=== PATIENT | female | born 1970 | race Caucasian/White ===

== ENCOUNTER 2019-04-18 17:56 | Emergency (ER) | payer BC ==
[~2019-04-18] VITALS: Ht 165.1 cm; Wt 103.4 kg
[2019-04-18] MEDS ORDERED: WELLBUTRIN 75 M75 M1 PO (18:09)
[2019-04-18] MEDS ORDERED: PROTONIX 20 MG20 M1 PO (18:09)
[2019-04-18] MEDS ORDERED: ACYCLOVIR 400400 MG PO (18:10)
[2019-04-18 19:33] VITALS: BP 127/84
== END 2019-04-18 19:33 | disposition home or self-care (01) ==
LOC: M.ERS 17:56
DX: M79.605 Pain in left leg (principal); Z85.048 Personal history of other malignant neoplasm of rectum, rectosigmoid junction, and anus

== ENCOUNTER 2020-04-27 16:19 | Inpatient (IN) | payer BC ==
[~2020-04-27] VITALS: Ht 162.6 cm; Wt 91.6 kg
--- NOTE | ~2020-04-27 | OP ---
[address] [address] OPERATIVE REPORT Name: FRAN ALMEIDA Room: [address] IN M.R.#: [id number] Admission: 04/27/20 Attend Phys: Betina Hoover Discharge: 04/30/20 Date of : 68 Report #: [id number] THIS REPORT FOR: //name// cc: Parvin Phelps Maggie M. DO THIS REPORT FOR: //name// CC: Betina Howell DATE OF SERVICE: 04/29/2020 PREOPERATIVE DIAGNOSES: Acute cholecystitis, cholelithiasis. POSTOPERATIVE DIAGNOSES: Acute cholecystitis, cholelithiasis. SURGEON: Neftali Figueroa DO CO-SURGEON: Lowell Magallanes DO, PGY5 BUSINESS PARTNER: Nick Montalvo DO, PGY-1. OPERATION PERFORMED: Laparoscopic cholecystectomy. ANESTHESIA: General and bilateral transversus abdominis plain block by Anesthesia. ESTIMATED BLOOD LOSS: 20 mL. SPECIMEN: Gallbladder. COMPLICATIONS: None. INDICATIONS: The patient is a 49-year-old female who presented to the Emergency Department with complaints of abdominal pain. She was found on imaging to have cholelithiasis and secondary signs of cholecystitis. She was informed of the risks and benefits of laparoscopic cholecystectomy with risks including but not limited to bleeding, infection, common bile duct injury, bowel injury, hernia formation, need for reoperation, chronic diarrhea. She understood these risks and decided to proceed with surgery. DESCRIPTION OF PROCEDURE: After informed consent was obtained, the patient was brought to the operating room and placed in supine position. SCDs were on and running. Preoperative Zosyn had been given on the floor. ICG was given in preop. General anesthesia was administered with an ET tube. Bilateral transversus abdominis plane blocks were placed. The [place] [address] OPERATIVE REPORT Name: FRAN ALMEIDA Room: [address] IN [facility].#: [id number] Admission: 04/27/20 Attend Phys: Betina Hoover Discharge: 04/30/20 Date of : 68 Report #: [id number] draped in the usual sterile fashion. Surgical pause was held to confirm proper patient and procedure. A 2 cm incision was made superior to the umbilicus with an 11 blade. Dissection was carried down to the fascia using cautery. Fascia was incised using cautery and elevated with 2 Javi clamps. Peritoneum was bluntly entered. Bilateral stay sutures were placed at the superior and inferior aspect of the incision. The Greta trocar was introduced. Abdomen was insufflated. The patient was positioned up, right side up. Additional ports 5 mm in size were placed in the epigastrium and right upper quadrant x 2, all under direct visualization. The gallbladder was tense. 30 mL of bilious fluid were aspirated to allow better retraction. The peritoneum overlying the hepatocystic triangle was bluntly dissected free from the omental adhesions. This area was then incised using cautery. The plane was developed laterally and then medially. A suction quiller runner was used to bluntly dissect the hepatocystic triangle until the cystic duct was visualized. [place] dissector was then used to circumferentially dissect the cystic duct and the cystic artery. Critical view of safety was obtained with 2 and only two structures entering the gallbladder. A Weck Hem-o-jorge clips were then doubly placed on the cystic duct and singly placed on the cystic artery. Laparoscopic scissors were used to divide the cystic duct and cystic artery. The gallbladder was then elevated and dissected free from the liver bed. There was a small branch of the cystic artery on the posterior aspect that was encountered. This was circumferentially dissected and doubly clipped and cauterized. The gallbladder was then completely excised from the liver bed using cautery, placed within an EndoCatch bag and placed aside. The liver bed was inspected. Cautery was used for hemostasis. The right upper quadrant was thoroughly irrigated and suctioned. Clips were inspected and hemostatic. There was no active bile leak. NV fluorescent technology was used throughout the case to identify structures and confirmed before clipping and cutting. The abdomen was desufflated. All ports were removed under direct visualization. Previous stay sutures were elevated. Two additional of [id number] using 0 Vicryl were used to close the fascia after the specimen and Greta trocar were removed. Skin was closed using 4-0 Monocryl. The umbilical incision was closed using a 3-0 Vicryl, 4-0 Monocryl. Wounds were cleansed and dressed with Dermabond. The patient was emerged from anesthesia and transferred to the PACU in stable condition. All counts were correct. By: [id number] 1342Cchiquita Magallanes DO /nt
[~2020-04-27 16:19] MED LIST: ACYCLOVIR 400400 MG PO; PROTONIX 20 MG20 M1 PO; WELLBUTRIN 75 M75 M1 PO
[2020-04-27 16:26] VITALS: BP 159/109
[2020-04-27 17:01] LABS: ABSOLUTE EOSINOPHILS 0.1 thou/uL (0.0-0.7); ABSOLUTE LYMPHOCYTES 2.1 thou/uL (0.8-5.3); ABSOLUTE MONOCYTES 0.7 thou/uL (0.0-1.2); BASOPHILS 0.3 %; EOSINOPHILS 0.9 %; HEMATOCRIT 45.9 % (37.0-47.0); HEMOGLOBIN 15.5 gm/dL (12.0-15.0); LYMPHOCYTES 17.3 %; MCH 28.9 pg (26.0-34.0); MCHC 33.7 g/dL (28.0-37.0); MCV 85.7 fL (80.0-100.0); MONOCYTES 5.7 %; MPV 6.8 fl. (7.2-11.1); NUCLEATED RBCS 0 /100WBC; PLATELET COUNT* 319 thou/uL (150-400); POLYS 75.8 %; RBC 5.35 mil/uL (4.20-5.00); RDW-CV 13.4 % (10.5-14.5)
[2020-04-27 17:12] LABS: CALCIUM 9.3 mg/dL (8.5-10.1); POTASSIUM 3.8 mmol/L (3.5-5.1)
[2020-04-27 17:17] LABS: ALBUMIN 4.7 g/dL (3.4-5.0); TOTAL BILIRUBIN 0.3 mg/dL (<0.1-1.0); TOTAL PROTEIN 8.5 g/dL (6.4-8.2)
[2020-04-27 18:36] LABS: URINE BILIRUBIN NEGATIVE (Negative); URINE BLOOD NEGATIVE (Negative); URINE CLARITY CLEAR; URINE COLOR YELLOW; URINE GLUCOSE-RANDOM NEGATIVE (Negative); URINE KETONES NEGATIVE (Negative); URINE LEUKOCYTES-REFLEX NEGATIVE (Negative); URINE NITRITE-REFLEX NEGATIVE (Negative); URINE PROTEIN NEGATIVE (Negative); URINE UROBILINOGEN 0.2 E.U./dl (0.2-1.0)
[2020-04-27 21:15] VITALS: BP 132/75
[2020-04-27 21:35] VITALS: BP 116/65
[2020-04-27 22:00] VITALS: BP 116/65
[2020-04-28 08:56] VITALS: BP 93/44
--- NOTE | 2020-04-28 09:49 | EKG ---
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
[2020-04-28 16:00] VITALS: BP 135/70
[2020-04-28 21:52] VITALS: BP 124/73
[2020-04-29 05:05] LABS: HEMATOCRIT 37.5 % (37.0-47.0); MCH 29.3 pg (26.0-34.0); MCHC 34.7 g/dL (28.0-37.0); MCV 84.5 fL (80.0-100.0); MPV 6.5 fl. (7.2-11.1); RBC 4.44 mil/uL (4.20-5.00); RDW-CV 13.6 % (10.5-14.5); WBC 6.9 thou/uL (4.0-11.0)
[2020-04-29 05:38] LABS: ALBUMIN 3.1 g/dL (3.4-5.0); CALCIUM 7.9 mg/dL (8.5-10.1); CREATININE 0.7 mg/dL (0.6-1.3); POTASSIUM 3.3 mmol/L (3.5-5.1); TOTAL BILIRUBIN 0.4 mg/dL (<0.1-1.0); TOTAL PROTEIN 5.7 g/dL (6.4-8.2)
[2020-04-29 08:14] VITALS: BP 121/73
[2020-04-29 23:37] VITALS: BP 129/77
[2020-04-30 03:59] LABS: HEMATOCRIT 41.4 % (37.0-47.0); HEMOGLOBIN 14.1 gm/dL (12.0-15.0); MCH 29.2 pg (26.0-34.0); MCV 85.9 fL (80.0-100.0); MPV 6.8 fl. (7.2-11.1); RBC 4.82 mil/uL (4.20-5.00); RDW-CV 13.6 % (10.5-14.5); WBC 9.6 thou/uL (4.0-11.0)
[2020-04-30 04:00] VITALS: BP 130/75
[2020-04-30 04:08] LABS: ALBUMIN 3.5 g/dL (3.4-5.0); CALCIUM 8.6 mg/dL (8.5-10.1); CREATININE 0.9 mg/dL (0.6-1.3); MAGNESIUM 2.2 mg/dL (1.8-2.4); POTASSIUM 4.2 mmol/L (3.5-5.1); TOTAL BILIRUBIN 0.5 mg/dL (<0.1-1.0); TOTAL PROTEIN 6.8 g/dL (6.4-8.2)
[2020-04-30] MEDS ORDERED: TRAMADOL 50 MG50 MG PO (07:53)
[2020-04-30 08:10] VITALS: BP 153/83
[2020-04-30 10:56] VITALS: BP 153/83
--- NOTE | 2020-05-01 15:48 | PATH ---
[address] [address] PATHOLOGY RPT PROCEDURE Name: SIRISHA EMMANUEL Room: [address] IN .R.#: [id number] Admission: 04/27/20 Date of : 68 Discharge: 04/30/20 Report #: [id number] Path Case #: [id number] [facility] Accession Number: [id number] . 01 Material submitted: . gallbladder - GALLBLADDER . 01 Clinical history: . Acute cholecystitis . 02 Diagnosis: Gallbladder: - Chronic and acute ulcerative cholecystitis and cholelithiasis, with abundance of eosinophils of unknown significance noted. (ROSALEE:pit 05/01/2020) QTP 05/01/2020 1220 Local . 02 Electronically signed: . Tony Tejada MD, Pathologist NPI- [id number] . 01 Gross description: . The specimen is received in formalin labeled "Sirisha Emmanuel, gallbladder" and consists of an intact green gil gallbladder measuring 7.0 x 3.0 x 2.5 cm. The margin is inked black. Opening reveals a lumen filled with tenacious green bile and multiple granular to mulberry calculi measuring up to 0.5 cm.. The mucosa is green-brown with scattered yellow flecks with an average wall thickness of 0.2 cm. No masses are identified. Metal Burnisher sections are submitted in A1. (SDY; 04/30/2020) SYU/SYU 04/30/2020 1344 Local . 02 Pathologist provided ICD-10: K80.12 . 02 CPT . 513790 Specimen Comment: A courtesy copy of this report has been sent to [phone] Specimen Comment: [phone], Specimen Comment: Report sent to ,DR BRADY / DR PONCE Performed at: [address], [place] [id number] MD Ayaz Moore MD Phone: [phone] Performed at: 02 [facility] [address] [place], [place] [id number] [address] [address] PATHOLOGY RPT PROCEDURE Name: SIRISHA EMMANUEL Room: [address] IN M.R.#: [id number] Admission: 04/27/20 Date of : 68 Discharge: 04/30/20 Report #: [id number] Path Case #: [id number] [facility] Phone: [phone]
== END 2020-04-30 11:29 | disposition home or self-care (01) | DRG 419 ==
LOC: M.ERS 16:19 → M.TBA-ER 18:42 → M.ORTHSURG 18:42
PROVIDERS: Emergency Medicine Emergency Medical Services; Internal Medicine; Surgery; ADMIT Family Medicine; ATTEND Family Medicine
PROC: 0FT44ZZ Resection of Gallbladder, Percutaneous Endoscopic Approach (ICD-10-PCS; principal; 2020-04-29)
DX: K80.00 Calculus of gallbladder with acute cholecystitis without obstruction (principal); Z20.828 Contact with and (suspected) exposure to other viral communicable diseases; Z87.891 Personal history of nicotine dependence; Z85.048 Personal history of other malignant neoplasm of rectum, rectosigmoid junction, and anus; Z79.899 Other long term (current) drug therapy

== ENCOUNTER → 2020-06-02 | Outpatient (CLI) | payer BC ==
[~2020-06-02] MED LIST changes: +TRAMADOL 50 MG50 MG PO
== END ==
LOC: M.RAD 13:50 → M.ULTRA 14:00
PROVIDERS: ATTEND Family Medicine
DX: Z12.31 Encounter for screening mammogram for malignant neoplasm of breast (principal); R22.32 Localized swelling, mass and lump, left upper limb

== ENCOUNTER → 2020-08-26 | Outpatient (CLI) | payer BC | LOC: M.MRI 11:30 | PROVIDERS: ATTEND Family Medicine | DX: M19.072 Primary osteoarthritis, left ankle and foot (principal); M25.872 Other specified joint disorders, left ankle and foot; M77.32 Calcaneal spur, left foot; M25.775 Osteophyte, left foot; M25.475 Effusion, left foot; M79.676 Pain in unspecified toe(s) ==

== ENCOUNTER → 2021-07-15 | Outpatient (CLI) | payer BC | LOC: M.WC 09:00 | PROVIDERS: ATTEND Family Medicine | DX: S80.861A Insect bite (nonvenomous), right lower leg, initial encounter (principal); S81.801A Unspecified open wound, right lower leg, initial encounter; E66.01 Morbid (severe) obesity due to excess calories; G47.30 Sleep apnea, unspecified; K21.9 Gastro-esophageal reflux disease without esophagitis; F32.9 Major depressive disorder, single episode, unspecified; F41.9 Anxiety disorder, unspecified; Z85.048 Personal history of other malignant neoplasm of rectum, rectosigmoid junction, and anus; Z68.37 Body mass index [BMI] 37.0-37.9, adult; Z87.891 Personal history of nicotine dependence; W57.XXXA Bitten or stung by nonvenomous insect and other nonvenomous arthropods, initial encounter; Y93.89 Activity, other specified; Y92.89 Other specified places as the place of occurrence of the external cause; Y99.8 Other external cause status ==

== ENCOUNTER → 2021-07-22 | Outpatient (CLI) | payer BC | LOC: M.WC 10:51 | PROVIDERS: ATTEND Family Medicine | DX: S80.861D Insect bite (nonvenomous), right lower leg, subsequent encounter (principal); S81.801D Unspecified open wound, right lower leg, subsequent encounter; E66.01 Morbid (severe) obesity due to excess calories; G47.30 Sleep apnea, unspecified; K21.9 Gastro-esophageal reflux disease without esophagitis; F32.9 Major depressive disorder, single episode, unspecified; F41.9 Anxiety disorder, unspecified; Z85.048 Personal history of other malignant neoplasm of rectum, rectosigmoid junction, and anus; Z68.37 Body mass index [BMI] 37.0-37.9, adult; Z87.891 Personal history of nicotine dependence; W57.XXXD Bitten or stung by nonvenomous insect and other nonvenomous arthropods, subsequent encounter ==

== ENCOUNTER → 2021-07-29 | Outpatient (CLI) | payer BC | LOC: M.WC 10:58 | PROVIDERS: ATTEND Family Medicine | DX: S80.861D Insect bite (nonvenomous), right lower leg, subsequent encounter (principal); S81.801D Unspecified open wound, right lower leg, subsequent encounter; E66.01 Morbid (severe) obesity due to excess calories; G47.30 Sleep apnea, unspecified; K21.9 Gastro-esophageal reflux disease without esophagitis; F32.9 Major depressive disorder, single episode, unspecified; F41.9 Anxiety disorder, unspecified; Z85.048 Personal history of other malignant neoplasm of rectum, rectosigmoid junction, and anus; Z68.37 Body mass index [BMI] 37.0-37.9, adult; Z87.891 Personal history of nicotine dependence; W57.XXXD Bitten or stung by nonvenomous insect and other nonvenomous arthropods, subsequent encounter ==

== ENCOUNTER → 2021-08-12 | Outpatient (CLI) | payer BC | LOC: M.WC 08:49 | PROVIDERS: ATTEND Family Medicine | DX: S80.861D Insect bite (nonvenomous), right lower leg, subsequent encounter (principal); S81.801D Unspecified open wound, right lower leg, subsequent encounter; E66.01 Morbid (severe) obesity due to excess calories; G47.30 Sleep apnea, unspecified; K21.9 Gastro-esophageal reflux disease without esophagitis; F32.9 Major depressive disorder, single episode, unspecified; F41.9 Anxiety disorder, unspecified; Z85.048 Personal history of other malignant neoplasm of rectum, rectosigmoid junction, and anus; Z68.37 Body mass index [BMI] 37.0-37.9, adult; Z87.891 Personal history of nicotine dependence; W57.XXXD Bitten or stung by nonvenomous insect and other nonvenomous arthropods, subsequent encounter ==